=== PATIENT | male | born 1945 | race Caucasian/White ===

== ENCOUNTER → 2017-04-09 08:03 | Outpatient (CLI) | payer MEDICARE ==
[2015-03-14 08:59] VITALS: BMI 25.8
[~2017-04-09 08:03] MED LIST: ASPIRIN81 MG PO; GLUCOPHAGE500 MG PO; HYTRIN5 MG PO; MOBIC7.5 MG PO; PRAVACHOL20 MG PO; PRILOSEC20 MG PO; PROSCAR5 MG PO; SYNTHROID75 MCG PO; TRICOR145 MG PO; ZYRTEC10 MG PO
== END | disposition home or self-care (01) ==
LOC: D.US 08:00
DX: R10.13 Epigastric pain (principal)

== ENCOUNTER 2018-01-01 01:26 | Emergency (ER) | payer MEDICARE ==
[2015-03-14 08:59] VITALS: BMI 25.8
[2018-01-01 02:07] LABS: BASOPHILS 0.3 % (0-2); EOSINOPHILS 2.5 % (0-7); HEMATOCRIT 41.6 % (42.0-54.0); HEMOGLOBIN 14.6 g/dL (13.5-17.5); IMMATURE GRANULOCYTES 0.7 % (0-5); LYMPHOCYTES 28.5 % (15-50); MCH 31.7 pg (26.0-34.0); MCHC 35.1 g/dL (31.0-37.0); MCV 90.4 fL (80.0-100.0); MEAN PLATELET VOLUME 10.5 fL (7.4-10.4); MONOCYTES 9.1 % (2-11); NEUTROPHILS 58.9 % (40-80); PLATELET COUNT 116 10x3/uL (130-400); RDW 12.6 % (11.5-14.5); WBC 7.6 10x3/uL (4.8-10.8)
[2018-01-01 02:13] LABS: APTT 30.4 SECONDS (22.8-39.4)
[2018-01-01 02:14] LABS: INR 1.12 (0.85-1.17)
[2018-01-01 02:17] LABS: ALKALINE PHOSPHATASE 84 U/L (46-116); ALT (SGPT) 26 U/L (10-68); BILIRUBIN - TOTAL 0.53 mg/dL (0.2-1.3); CALC OSMOLALITY 284 mosm/kg (275-300); CALCIUM 9.2 mg/dL (8.5-10.1); CARBON DIOXIDE 27.7 mmol/L (21.0-32.0); CHLORIDE - SERUM 104 mmol/L (98-107); CREATININE - SERUM 1.3 mg/dL (0.6-1.3); GLUCOSE 146 mg/dL (74-106); POTASSIUM - SERUM 4.3 mmol/L (3.5-5.1); PROTEIN - SERUM 6.9 g/dL (6.4-8.2); SODIUM 140 mmol/L (136-145); UREA NITROGEN 21 mg/dL (7-18); eGFR NON AFRICAN AMERICAN 58 mL/min (90-120)
[2018-01-01 02:29] LABS: CHOL - HDL RATIO 2.6 ratio (2.3-4.9); CHOLESTEROL, TOTAL 112 mg/dL (0-200); CKMB 2.2 U/L (0.0-3.6); CREATINE KINASE 122 UL (21-232); D-DIMER-QUANTITATIVE < 0.27 ug/mLFEU (0.20-0.54); HDL CHOLESTEROL 43 mg/dL (32-96); LDL CHOLESTEROL 50 mg/dL (0-100); LDL-HDL RATIO 1.2 ratio (1.5-3.5); PRO BNP 24 pg/mL (0-125); TRIGLYCERIDE 99 mg/dL (30-200); TROPONIN-I < 0.017 ng/mL (0.000-0.060)
== END 2018-01-01 06:38 | disposition home or self-care (01) ==
LOC: D.ER 01:26
PROVIDERS: Family Medicine
DX: R07.9 Chest pain, unspecified (principal); M79.1 Myalgia; R00.1 Bradycardia, unspecified

== ENCOUNTER → 2018-05-05 07:50 | Outpatient (CLI) | payer MEDICARE ==
[2015-03-14 08:59] VITALS: BMI 25.8
== END | disposition home or self-care (01) ==
LOC: D.CT 07:50
DX: R10.9 Unspecified abdominal pain (principal)

== ENCOUNTER → 2019-06-15 07:56 | Outpatient (CLI) | payer MEDICARE ==
[2015-03-14 08:59] VITALS: BMI 25.8
[~2019-06-15 07:56] MED LIST changes: +AMBIEN10 MG PO; +LIPITOR40 MG PO; +PROTONIX40 MG PO; +SINGULAIR10 MG PO; +UROXATRAL10 MG PO
--- NOTE | 2019-06-16 09:53 | ST ---
PATIENT:KAT HERNANDEZ MEDICAL RECORD: [id number] SEX: M LOCATION:[facility] ORDER #: ADMISSION DATE: 06/15/19 AGE OF PATIENT: 73 REFERRING PHYSICIAN: INTERPRETING PHYSICIAN: ELIAZAR MOON MD DATE OF SERVICE: 06/15/2019 PROCEDURE: Nuclear stress test. INDICATION: Angina, coronary artery disease, and hyperlipidemia. He was exercised on standard Lexiscan protocol with 31 mCi of sestamibi injected at peak stress, 11 mCi were used previously for rest images. FINDINGS: Gated SPECT reveals preserved ejection fraction at 67% with decreased thickening and brightening throughout the inferior segments. SPECT imaging: Cardiolite was used as myocardial perfusion agent. There is a mixed perfusion defect inferiorly, partially fixed, partially reversible includes basal, mid, apical inferior segments, as well as the apex itself. There is over reversibility laterally. This includes the basal, mid, apical, lateral segments. The degree of reversibility is mild. The amount of myocardium involved is large between the defects. OVERALL IMPRESSION: This is an intermediate to high risk abnormal nuclear stress test with reversibility inferiorly and laterally suggestive of a possible multivessel disease. TRANSINT:[id number] Voice Confirmation ID: [id number] DOCUMENT ID: [id number] ELIAZAR MOON MD at 0953 CC: [id number] DICTATION DATE: 06/15/19 1726 HEALTH DATA ANALYST: 06/16/19 0129 DEP CLI 06/15/19 [id number] [place] [address]
== END | disposition home or self-care (01) ==
LOC: D.HCCARDIO 07:56
PROVIDERS: ATTEND Internal Medicine Interventional Cardiology
DX: I25.110 Atherosclerotic heart disease of native coronary artery with unstable angina pectoris (principal); E78.5 Hyperlipidemia, unspecified

== ENCOUNTER 2019-06-17 16:24 | Observation (INO) | payer MEDICARE ==
[~2019-06-17] VITALS: Ht 182.9 cm; Wt 67.4 kg
--- NOTE | ~2019-06-17 | OP ---
PATIENT NAME: KAT HERNANDEZ MEDICAL RECORD: [id number] :47 LOCATION:D.M2 D.2124 ADMISSION DATE:06/17/19 SURGEON: ELIAZAR MOON MD DATE OF OPERATION: 06/18/2019 PROCEDURES: 1. Left heart catheterization. 2. Selective coronary angiography. 3. Left ventriculogram. INDICATION: Angina, coronary artery disease, previous PTCA stent. PROCEDURE IN DETAIL: After informed consent was obtained and after a detailed description of the risks, benefits as well as alternative therapies, the patient elected to proceed with angiogram and heart catheterization. The right radial area was prepped and draped in normal sterile fashion. Right radial artery was cannulated via modified Seldinger technique with placement of 5-Croatian sheath. All catheters exchanged through this sheath. FINDINGS: Left ventriculogram was in standard 30-degree LAZO view, reveals good cardiac wall motion, ejection fraction is 60%. SELECTIVE CORONARY ANGIOGRAPHY: 1. Left main is with no significant angiographic disease. 2. Left anterior descending has a previously placed stent that is widely patent with no significant restenosis. No disease elsewise throughout the LAD or its branches. 3. Left circumflex has moderate irregularities, but no flow-limiting stenosis. 4. Right coronary artery has moderate irregularities, but no flow-limiting stenosis. OVERALL IMPRESSION: Wide patency of the previously placed stent, no disease elsewise. Continue medical management of the coronary artery disease and cardiac risk factors. TRANSINT:[id number] Voice Confirmation ID: [id number] DOCUMENT ID: [id number] ELIAZAR MOON MD CC: [id number] DICTATION DATE: 06/19/1942 CODING VALIDATOR: 06/19/19 0950 DIS IN 06/18/19 [facility] [address] [id number]
--- NOTE | ~2019-06-17 | HEMODYNAMI ---
PATIENT:KAT HERNANDEZ MEDICAL RECORD: [id number] : 47 LOCATION:[facility] D.2124 [facility]# [id number] ADMISSION DATE: 06/17/19 Generatedon:06/18/201913:09 Patient name: KAT HERNANDEZ Patient #: [id number] : 1945 Date of study: 06/18/2019 Page: Of Hemodynamic Procedure Report Patient Data Patient Demographics Procedure consent was obtained First Name: KAT Gender: Male Last Name: MARY : 1945 [facility] Initial: BERTRAND Age: 73 year(s) Patient #: [id number] Race: Unknown SSN: [id number] Additional ID: [id number] Contact details [address]: [address] [place] [address] State: [place] City: [place] Zip code: [address] Past Medical History Allergies Allergen Reaction Date Comments Reported Other allergy 03/14/2015 PCN, MARIETTA Inhibitors, Bactrum Admission Admission Data Admission Date: 06/17/2019 Admission Time: 18:55 Admit Source: Other Room #: D.2124 Height (in.): 71.65 BSA: 1.87 (m2) Height (cm.): 182 BMI: 20.23 (kg/m2) Weight (lbs.): 147.71 Weight (kg.): 67 Lab Results Lab Result Date: 06/18/2019 Lab Result Time: 0:00 Biochemistry Name Units Result Min Max BUN mg/dl 19 --(----)*- 7 18 Creatinine mg/dl 1.1 --(--*-)-- 0.6 1.3 eGFR ml/min 70.29667 *-(----)-- 90 120 NONAFRICAN CBC Name Units Result Min Max Hemoglobin g/dl 14.7 --(-*--)-- 13.5 17.5 Procedure Procedure Types Cath Procedure Diagnostic Procedure LHC LHC w/Coronaries Procedure Description Procedure Date Procedure Date: 06/18/2019 Procedure Start Time: 12:57 Procedure End Time: 13:06 Procedure Staff Name Function Min Cowan MD Performing Physician Billie Barcenas RT Monitor Taj Metzger RN Nurse Marleen Cooper RT Scrub Indication Abnormal stress perfusion Abnormal stress perfusion study Procedure Data Cath Procedure Fluoroscopy Diagnostic fluoroscopy Total fluoroscopy Time: 1.3 time: 1.3 min min Diagnostic fluoroscopy Total fluoroscopy dose: 447 dose: 447 mGy mGy Contrast Material Contrast Material Type Amount (ml) Isovue 300 62 Entry Location Entry Primary Successful Side Size Upsize Upsize Entry Closure Silver ccessful Closure Location (Fr) 1 (Fr) 2 (Fr) Remarks Device Remarks Radial Right 6 Fr Mechanical artery Short Compression Estimated blood loss: 10 ml Diagnostic catheters Device Type Used For End Catheter Placement DIAGNOSTIC [place] 110cm 5 Procedure Fr catheter ([id number]) Procedure Complications No complications Procedure Medications Medication Administration Route Dosage Oxygen etCO2 Nasal cannula 2 l/min Heparin Flush Bag added to field 2 bags (1000units/500ml NS) 0.9% NaCl I.V. 100 ml/hr Lidocaine 2% added to field 20 Radial Cocktail added to field 1 syringe (Verapamil 2mg/Nitro 400mcg/Heparin 1500units) Fentanyl I.V. 50 mcg Versed I.V. 1 mg Fentanyl I.V. 50 mcg Versed I.V. 1 mg Radial Cocktail I.A. 1 syringe (Verapamil 2mg/Nitro 400mcg/Heparin 1500units) Hemodynamics Rest BSA: 1.87 (m2) HGB: 14.7 (g/dl) O2 Consumption: Estimated: 204.87 (ml/min) O2 Co nsumption indexed: Estimated:109.56 (ml/min/m) Heart Rate: 55 (bpm) Snapshots Pre Cath Intra NCS Post Cath Vital Signs Time Heart Resp SPO2 etCO2 NIBP Rhythm Pain Sedation Rate (ipm) (%) (mmHg) (mmHg) Status Level (bpm) 12:42:54 45 17 100 36.7 141/74(87) NSR 0 (11) 10(A) , No pain 12:47:14 45 17 100 0 105/61(76) NSR 0 (11) 10(A) , No pain 12:52:23 48 16 98 10.5 118/67(80) NSR 0 (11) 10(A) , No pain 12:56:37 62 16 96 0 86/53(74) NSR 0 (11) 10(A) , No pain 13:01:40 54 16 96 0 106/64(85) NSR 0 (11) 9(A) , No pain 13:03:43 55 66 90 13.4 101/58(77) NSR 0 (11) 10(A) , No pain Medications Time Medication Route Dose Verified Delivered Reason Notes Effectiveness by by 12:50:19 Oxygen etCO2 2 l/min Min Vang Per Nasal Camryn Metzger RN physician cannula 12:50:26 Heparin Flush added 2 bags Min Vang used for Bag to Camryn Metzger RN procedure (1000units/500ml field NS) 12:50:38 0.9% NaCl I.V. 100 Minmeng Oneilly used for ml/hr Camryn Metzger RN procedure 12:50:46 Lidocaine 2% added 20ml Min Vang for local to vial Camryn Metzger RN anesthetic field 12:51:07 Radial Cocktail added 1 Min Vang used for (Verapamil to syringe Camryn Metzger RN procedure 2mg/Nitro field 400mcg/Heparin 1500units) 12:57:12 Fentanyl I.V. 50 mcg Min Vang for sedation Camryn Metzger RN 12:57:19 Versed I.V. 1 mg Min Vang for sedation Camryn Metzger RN 12:58:11 Radial Cocktail I.A. 1 Min [place] for (Verapamil syringe Camryn Cowan MD vasodilation 2mg/Nitro 400mcg/Heparin 1500units) 12:59:17 Fentanyl I.V. 50 mcg Min Vang for sedation Camryn Metzger RN 12:59:19 Versed I.V. 1 mg Min Oneilly for sedation Camryn Metzger RN Procedure Log Time Note 12:30:52 Admit Source: Other 12:31:15 Procedure Status Urgent Heart Cath (IP). 12:31:18 Marleen Cooper RT(R) sent for patient. Start room use. 12:31:20 Time tracking: Regular hours (M-F 7:00 - 5:00) 12:31:25 Plan of Care:Hemodynamics will remain stable., Cardiac rhythm will remain stable., Comfort level will be maintained., Respiratory function will remain adequate., Patient/ family verbilizes understanding of procedure., Procedure tolerated without complication., Recovers from procedure without complications.. 12:31:34 Patient received from Med II to CCL 2 Alert and oriented. Tansferred to table in Supine position. 12:31:37 Signed procedure consent form obtained from patient. 12:32:15 2) 60-89 Mildly reduced kidney function, and other findings (as for stage 1) point to kidney disease. 12:32:45 Maximum allowable contrast dose (3.7 X eGFR X 0.75)194 ml. 12:32:50 Sedation plan: IV Moderate Sedation Medication:Versed, Fentanyl 12:33:22 Diagnostic Cath Status : Urgent 12:33:27 PCI Cath Status : Elective 12:34:10 Lab Result : BUN 19 mg/dl 12:34:10 Lab Result : eGFR NONAFRICAN 70.00663 ml/min 12:34:10 Lab Result : Hemoglobin 14.7 g/dl 12:34:10 Lab Result : Creatinine 1.1 mg/dl 12:41:34 Vital chart was started 12:50:19 Oxygen 2 l/min etCO2 Nasal cannula was administered by Taj Metzger RN; Per physician; 12:50:26 Heparin Flush Bag (1000units/500ml NS) 2 bags added to field was administered by Taj Metzger RN; used for procedure; 12:50:38 0.9% NaCl 100 ml/hr I.V. was administered by Taj Metzger RN; used for procedure; 12:50:46 Lidocaine 2% 20ml vial added to field was administered by Taj Metzger RN; for local anesthetic; 12:51:07 Radial Cocktail (Verapamil 2mg/Nitro 400mcg/Heparin 1500units) 1 syringe added to field was administered by Taj Metzger RN; used for procedure; 12:53:54 Zero performed for pressure channel P1 12:53:59 Zero performed for pressure channel P1 12:54:56 Baseline sample Acquired. 12:55:02 Rhythm: sinus rhythm 12:55:04 Full Disclosure recording started 12:55:15 H&P Date Dictated: 06/17/2019 Within 30 days and on chart., H&P Addendum completed by physician on day of procedure. (MUST COMPLETE FOR ALL OUTPATIENTS). 12:55:17 Pre-procedure instructions explained to patient. 12:55:19 Family in waiting room. 12:55:21 Patient NPO since Midnight. 12:55:24 Is the patient allergic to Iodine/contrast media? No. 12:55:26 Was the patient premedicated? Yes 12:55:28 Is patient on blood thinner?No 12:55:39 Patient diabetic? Yes. 12:55:41 If diabetic: On Metformin? No 12:55:49 Previous problem with sedation/anesthesia? No ? 12:55:51 Snore? Yes 12:55:52 Sleep apnea? No 12:56:02 Pre procedure: right dorsailis pedis pulse 1+ Palpable, but thready & weak; easily obliterated 12:56:12 IV patent on arrival in right forearm with 0.9% NaCl at [facility]. 12:56:16 Lab results completed and on chart. 12:56:31 Right Radial & Right Groin area was prepped with chlora-prep and draped in sterile fashion 12:56:33 Alarms reviewed by Josi Blakely 12:56:34 Physician paged 12:56:37 Physician arrived 12:56:38 --------ALL STOP TIME OUT------ 12:56:39 Final Timeout: patient, procedure, and site verified with staff and physician. All members of the team are in agreement. 12:56:43 Right Radial & Right Groin site verified by team. 12:56:47 Fire Safety Assessment: A--An alcohol-based skin anteseptic being used preoperatively., C--Open oxygen or nitrous oxide is being used., D--An ESU, laser, or fiber-optic light is being used. 12:56:52 Physical assessment completed. ASA score P 2 - A patient with mild systemic disease as per Min Cowan MD. 12:57:09 Use device set Radial Dx or PCI 12:57:11 ACIST Syringe (17005) opened to sterile field. 12:57:11 Medline Cath Pack ([id number]) opened to sterile field. 12:57:12 Fentanyl 50 mcg I.V. was administered by Taj Metzger RN; for sedation; 12:57:12 Bag Decanter (2002) opened to sterile field. 12:57:12 ACIST Hand Control (02114) opened to sterile field. 12:57:12 ACIST Manifold (34521) opened to sterile field. 12:57:13 Tegaderm 4 x 4 (1626W) opened to sterile field. 12:57:14 MBrace Wrist Support ([id number]) opened to sterile field. 12:57:19 Versed 1 mg I.V. was administered by Taj Metzger RN; for sedation; 12:57:30 EMERALD Guide Wire (039-588) opened to sterile field. 12:57:30 SHEATH 6FR RAIN (1042882) opened to sterile field. 12:57:33 Procedure started. 12:57:52 Local anesthetic to right radial artery with Lidocaine 2% by Min Cowan MD.INITIAL ACCESS ONLY 12:58:05 A 6 Fr Short sheath was inserted into the Right Radial artery 12:58:10 J wire advanced. 12:58:11 Radial Cocktail (Verapamil 2mg/Nitro 400mcg/Heparin 1500units) 1 syringe I.A. was administered by Min Cowan MD; for vasodilation; 12:58:20 A DIAGNOSTIC [place] 110cm 5 Fr catheter (344281) was advanced over the wire and used for Procedure. 12:58:23 LV angiography performed. 12:58:28 LV gram done using LAZO 12:58:40 EF : 65 % 12:59:17 Fentanyl 50 mcg I.V. was administered by Taj Metzger RN; for sedation; 12:59:19 Versed 1 mg I.V. was administered by Taj Metzger RN; for sedation; 12:59:26 LCA angiography performed. 12:59:27 RCA angiography performed. 12:59:30 Catheter removed. 12:59:39 TR BAND Standard ([id number]) opened to sterile field. 13:00:15 Sheath removed intact; hemostasis achieved with Mechanical Compression to the Right Radial artery. 13:00:17 Procedure ended.(Physican Out) 13:03:10 Fluoroscopy time 01.30 minutes. 13:03:16 Fluoroscopy dose: 447 mGy 13:03:16 Flurop Dose total: 447 13:03:23 Dose Area Product 73766 mGy/cm. 13:03:29 Contrast amount:Isovue 300 62ml. 13:03:53 Maximum allowable dose exceeded? No. 13:03:56 Sharps counted by scrub and verified by R.N. 13:04:02 TR band inflated with 10cc of air. 13:04:04 Insertion/operative site no bleeding no hematoma. 13:04:16 Post right radial artery:stable 13:04:20 Post Procedure Pulses reassessed and unchanged 13:04:24 Post-procedure physical assessment completed. ASA score P 3 - A patient with severe systemic disease as per Min Cowan MD. 13:04:29 Post procedure rhythm: unchanged. 13:04:42 Estimated blood loss: 10 ml 13:04:55 Post procedure instruction explained to patient.Patient verbalizes understanding. 13:05:13 Procedure type changed to Cath procedure, Diagnostic procedure, LHC, LHC w/Coronaries 13:05:15 Procedure and supply charges have been captured, reviewed, submitted and are correct. 13:05:42 Procedure Complication : No complications 13:05:45 Vital chart was stopped 13:05:45 See physician's report for complete and final results. 13:05:47 Report given to [facility] II. 13:05:59 Patient transfered to Med II with Bed. 13:06:11 Procedure ended. 13:06:11 Full Disclosure recording stopped 13:06:23 End room use (Document Last) 13:07:34 Patient Height : 71.65 inches 13:07:39 Patient Weight : 147.71 lbs 13:08:11 Indication : Abnormal stress perfusion 13:09:18 Indication : Abnormal stress perfusion study Device Usage Item Name Manufacture Quantity Catalog Hospital Part Current Minima l Lot# / Number Charge Number Stock Stock Serial# Code ACIST Acist 1 20081 028421 642247 [id number] 20 Syringe Medical (39768) Systems Inc Medline Medline 1 [id number] 182020 40088 893673 5 Cath Pack ([id number]) Bag Microtek 1 341465 02121 769631 5 Decanter Medical Inc. () ACIST Hand Acist 1 35187 716263 225553 579617 5 Control Medical (72018) Systems Inc ACIST Acist 1 32553 543549 252293 406789 5 Manifold Medical (20384) Systems Inc Tegaderm 4 3M 1 1626W 011175 050459 862451 5 x 4 (1626W) MBrace Advanced 1 140-0250-00 175353 60686 275561 5 Wrist Vascular Support Dynamics ([id number]) EMERALD Cardinal 1 403-336 042283 992468 126389 5 Guide Wire Health (772-743) SHEATH 6FR Cardinal 1 1137622 529037 5892688 941113 5 [facility] (1046900) DIAGNOSTIC Terumo 1 40-6574 668033 030302 205386 5 [place] 110cm 5 Fr catheter (931205) TR BAND Terumo 1 [id number] 717194 787739 991723 40 Standard ([id number]) Signature Audit [place] Stage Time Signature Unsigned Intra-Procedure 06/18/2019 Billie Barcenas 1:09:47 PM RT(R) Signatures Performing Physician : Signature : Min Cowan MD Date : Time : Monitor : Billie Barcenas Signature : RT Date : Time : Nurse : Taj Metzger RN Signature : Date : Time : [address] [place] [address]
[~2019-06-17 16:24] MED LIST changes: -AMBIEN10 MG PO; -LIPITOR40 MG PO; -PROTONIX40 MG PO; -SINGULAIR10 MG PO; -UROXATRAL10 MG PO
[2019-06-17] MEDS ORDERED: LIPITOR40 MG PO (16:35)
[2019-06-17] MEDS ORDERED: SINGULAIR10 MG PO (16:36)
[2019-06-17] MEDS ORDERED: UROXATRAL10 MG PO (16:37)
[2019-06-17] MEDS ORDERED: AMBIEN10 MG PO (16:37)
[2019-06-17 17:01] LABS: BASOPHILS 0.2 % (0-2); EOSINOPHILS 2.3 % (0-7); HEMATOCRIT 40.4 % (42.0-54.0); HEMOGLOBIN 14.7 g/dL (13.5-17.5); IMMATURE GRANULOCYTES 0.2 % (0-5); LYMPHOCYTES 26.9 % (15-50); MCH 32.2 pg (26.0-34.0); MCHC 36.4 g/dL (31.0-37.0); MCV 88.6 fL (80.0-100.0); MEAN PLATELET VOLUME 10.6 fL (7.4-10.4); MONOCYTES 9.4 % (2-11); PLATELET COUNT 105 10x3/uL (130-400); RBC 4.56 10x6/uL (4.20-6.10); RDW 12.8 % (11.5-14.5); WBC 5.7 10x3/uL (4.8-10.8)
[2019-06-17 17:20] LABS: APTT 31.4 SECONDS (22.8-39.4); INR 1.18 (0.85-1.17); PROTIME 14.5 SECONDS (11.6-15.0)
[2019-06-17 17:21] LABS: ALBUMIN 4.2 g/dL (3.4-5.0); ALKALINE PHOSPHATASE 80 U/L (46-116); ALT (SGPT) 24 U/L (10-68); BILIRUBIN - TOTAL 0.79 mg/dL (0.2-1.3); CALC OSMOLALITY 283 mosm/kg (275-300); CALCIUM 8.7 mg/dL (8.5-10.1); CARBON DIOXIDE 27.4 mmol/L (21.0-32.0); CHLORIDE - SERUM 105 mmol/L (98-107); CREATININE - SERUM 1.1 mg/dL (0.6-1.3); GLUCOSE 124 mg/dL (74-106); POTASSIUM - SERUM 3.9 mmol/L (3.5-5.1); PROTEIN - SERUM 7.1 g/dL (6.4-8.2); SODIUM 141 mmol/L (136-145); UREA NITROGEN 19 mg/dL (7-18); eGFR NON AFRICAN AMERICAN 70 mL/min (90-120)
[2019-06-17 17:33] LABS: CKMB 1.9 U/L (0.0-3.6); CREATINE KINASE 114 UL (21-232); MAGNESIUM - SERUM 1.7 mg/dL (1.8-2.4)
[2019-06-17 17:41] LABS: TROPONIN-I < 0.017 ng/mL (0.000-0.060)
--- NOTE | 2019-06-17 19:56 | NUR ---
called report to sarah, unable to transfer patient at this time due to room not being clean.
--- NOTE | 2019-06-17 21:19 | NUR ---
RECIEVED TO ROOM 2123 FORM ER VIA WC. PT A&O. RESPERATIONS EVEN ON RA. VITALS STABLE. HISTORY AND MED REC OBTAINED. SANDWHICH TRAY GIVEN ALONG WITH DIET COLA. PT DENIES PAIN OR NEEDS, BED LOW, CL IN REACH. AT BED SIDE.
[2019-06-17] MEDS ORDERED: PROTONIX40 MG PO (21:24)
[2019-06-18] VITALS: BP 137/74
[2019-06-18 00:10] VITALS: BP 134/100; Ht 182.9 cm; Wt 67.4 kg
[2019-06-18 00:30] VITALS: BP 137/74
--- NOTE | 2019-06-18 02:38 | NUR ---
RESTING WITH EYES CLOSED, RESPERATIONS EVEN, NO S/S DISTRESS NOTED.
[2019-06-18 04:00] VITALS: BP 95/50
--- NOTE | 2019-06-18 07:49 | NUR ---
REPORT RECIEVED. PT IS A&O. L FA PIV IS SL. RR EVEN AND UNLABORED. REMINDED PT OF NPO STATUS DUE TO POSSIBLE HEART CATH. PT HAS NO OTHER NEEDS AT THIS TIME. BED LOCKED AND IN LOWEST POSITION. CALL LIGHT WITHIN REACH. WILL CTM
[2019-06-18 08:21] VITALS: BP 112/65
[2019-06-18 11:55] VITALS: BP 130/67
--- NOTE | 2019-06-18 12:40 | NUR ---
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
--- NOTE | 2019-06-18 13:22 | NUR ---
PT RETURNED TO ROOM FROM HEART CATH. L TR BAND IN PLACE. WILL CTM
--- NOTE | 2019-06-18 14:17 | NUR ---
I have reviewed this patient and I concur with the Shift Assessment completed by the Licensed Practical Nurse today this shift.
--- NOTE | 2019-06-18 14:38 | NUR ---
UPON REMOVING 5CC OF AIR FROM TR BAND PT STARTED TO BLEED. INSERT THE 5CC OF AIR BACK AND WILL CTM
--- NOTE | 2019-06-18 15:42 | NUR ---
ATTEMPTED TAKING OUT 5CC OF AIR AND PT IS STILL ACTIVELY BLEEDING. INSTILLED 5CC OF AIR BACK. WILL CTM
--- NOTE | 2019-06-18 17:05 | NUR ---
TOOK OUT 5CC OF AIR FROM TR BAND. NO BLEEDING PRESENT. WILL CTM
--- NOTE | 2019-06-18 18:38 | NUR ---
REST OF THE 5CC REMOVED FROM TR BAND. NO BLEEDING OR HEMATOMA PRESENT. DC PAPERS SIGNED AND GONE OVER WITH PT. ALL QUESTIONS ANSWERED. PIV REMOVED. CATH TIP FULLY INTACT. PT DC WITH FAMILY PRESENT. TAKEN DOWNSTAIR VIA WC. TELEMETRY REMOVED AND RETURNED.
--- NOTE | 2019-06-19 09:15 | MORECARE ---
CASE MANAGEMENT DISCHARGE SUMMARY PATIENT: KAT HERNANDEZ UNIT: [id number] ADM DATE: 06/17/19 AGE: 73 : [birth year] SEX: M ROOM/BED: D.2124 AUTHOR: YOANA DELVALLE PHYSICIAN: REFERRING PHYSICIAN: ELIAZAR MOON MD DATE OF SERVICE: 06/19/19 Discharge Plan Patient Name: KAT HER[facility]NDEZ [facility] [facility] 1945 Planned Disposition: Home Anticipated Discharge Date: 06/18/19 Discharge Date: 06/18/2019 Expected LOS: 1 Initial Reviewer: [email or web address] Initial Review Date: 06/12/2019 Generated: 06/19/19 10:15 am Patient Name: KAT HERNANDEZ Page [id number] at 0915 All edits/amendments must be made on the electronic document DICTATION DATE: 06/19/19913 COMMERCIAL CREDIT SPECIALIST: SHELLEY 06/19/19913 RPT#: [id number] DC DATE:06/18/19 STATUS: DIS IN [facility] [address] [place] [address] END OF REPORT
== END 2019-06-18 18:41 | disposition home or self-care (01) ==
LOC: D.ER 16:24 → D.M2 18:55 → OBSVTIME 19:14 → D.M2 06-18 18:41
PROVIDERS: Emergency Medicine; ADMIT Internal Medicine Interventional Cardiology; ATTEND Internal Medicine Interventional Cardiology
DX: I25.119 Atherosclerotic heart disease of native coronary artery with unspecified angina pectoris (principal); Z95.5 Presence of coronary angioplasty implant and graft